=== PATIENT | male | born 1965 | race Asian ===

== ENCOUNTER 2022-01-12 20:37 | Inpatient (IN) | payer BC ==
[~2022-01-12] VITALS: Ht 175.3 cm; Wt 95.3 kg
[2022-01-13] MEDS ORDERED: OLMSRTN-AMLDPN1 EAC3 (13:08)
[2022-01-13] MEDS ORDERED: BISOPROLOL FUMAR5 MG (13:08)
== END 2022-01-16 22:55 | disposition home or self-care (01) | DRG 728 ==
LOC: ER 20:37 → MEDI 01-13 09:50
PROVIDERS: ADMIT Internal Medicine; ATTEND Internal Medicine
PROC: BF37ZZZ Magnetic Resonance Imaging (MRI) of Pancreas (ICD-10-PCS; principal; 2022-01-13)
DX: N41.8 Other inflammatory diseases of prostate (principal); K83.09 Other cholangitis; B17.8 Other specified acute viral hepatitis; E80.6 Other disorders of bilirubin metabolism; R74.8 Abnormal levels of other serum enzymes; R10.13 Epigastric pain; K52.89 Other specified noninfective gastroenteritis and colitis; E86.0 Dehydration; I10 Essential (primary) hypertension; E87.8 Other disorders of electrolyte and fluid balance, not elsewhere classified